=== PATIENT | male | born 1960 | race Caucasian/White ===

== ENCOUNTER 2017-03-03 06:21 | Emergency (ER) | payer BC ==
[~2017-03-03 06:21] MED LIST: HYZAAR 50-12.51 EACH PO; LOVAZA 1 GM1 G PO; NIACIN500 MG PO; NORVASC10 MG PO; OMEPRAZOLE40 MG PO; PERCOCET 10-321 EACH PO; SAW PALMETTO500 MG PO; THERAGRAN TAB1 EA PO; VITAMIN D 11000 UNIT PO; XARELTO10 MG PO
== END 2017-03-03 07:42 | disposition home or self-care (01) ==
LOC: ER1 06:21
DX: S60.455A Superficial foreign body of left ring finger, initial encounter (principal); R22.31 Localized swelling, mass and lump, right upper limb; I10 Essential (primary) hypertension; W49.04XA Ring or other jewelry causing external constriction, initial encounter
CPT/HCPCS: 99283